=== PATIENT | female | born 1930 | race Caucasian/White ===

== ENCOUNTER → 2017-10-14 | Outpatient (CLI) | payer MEDICARE, OTHER ==
[~2017-10-14] MED LIST: BENAZEPRIL HCL20 MG PO; CALCIUM 600 +1 EA11 PO; COREG25 MG PO; GABAPENTIN 100100 MG PO; HYDROCHLOROTH12.5 M1 PO; IRON325 PO; LEVAQUIN 500 M500 M2 PO; MAGNESIUM OXID400 MG PO; MUCINEX TA600 MG/TA2 PO; NEURONTIN300 MG PO; PRILOSEC20 MG PO; TUMS PO
[2017-10-14 09:16] LABS: CALCIUM 8.7 mg/dL (8.5-10.1); CREATININE 1.1 mg/dL (0.6-1.3)
== END ==
LOC: M.LAB 08:30 → M.CT 09:30
PROVIDERS: Student in an Organized Health Care Education/Training Program
DX: J18.1 Lobar pneumonia, unspecified organism (principal); A31.0 Pulmonary mycobacterial infection; R93.8 Abnormal findings on diagnostic imaging of other specified body structures